=== PATIENT | male | born 1950 | race Caucasian/White ===

== ENCOUNTER 2018-04-18 20:40 | Emergency (ER) | payer SELFPAY ==
[2018-04-18 20:46] VITALS: RESP 16
--- NOTE | 2018-04-18 21:09 | ED PDOC ---
HPI: Psych/Substance Abuse Time Seen by Provider: 04/18/18 20:51 Chief Complaint (Nursing): Alcohol Ingestion Chief Complaint (Provider): etoh History Per: Patient, EMS Additional Complaint(s): BIBA for etoh. Patient was found asleep in the street. He admits to drinking today and states he drinks daily. Patient offers no complaints. Past Medical History Reviewed: Historical Data, Nursing Documentation, Vital Signs Vital Signs: Last Vital Signs Temp 98.0 F 04/18/18 20:44 Pulse 101 H 04/18/18 20:44 Resp 16 04/18/18 20:44 BP 154/91 H 04/18/18 20:44 Pulse Ox 99 04/18/18 20:44 - Medical History PMH: HTN - Family History Family History: States: No Known Family Hx - Living Arrangements Living Arrangements: With Family - Social History Current smoker - smoking cessation education provided: No Alcohol: > 2 Drinks/Day Drugs: Denies - Home Medications Home Medications: Ambulatory Orders Medication Instructions Recorded No Known Home Med [No Known Home 05/03/15 Med] - Allergies Allergies/Adverse Reactions: Allergies Allergy/AdvReac Type Severity Reaction Status Date / Time No Known Allergies Allergy Verified 05/03/15 08:06 Review of Systems ROS Statement: Except As Marked, All Systems Reviewed And Found Negative Psych: Positive for: Other (etoh) Physical Exam - Reviewed Nursing Documentation Reviewed: Yes Vital Signs Reviewed: Yes - Physical Exam Appears: Positive for: Well, Non-toxic, No Acute Distress Skin: Positive for: Normal Color. Negative for: Rash Eye Exam: Positive for: Normal appearance Cardiovascular/Chest: Positive for: Regular Rate, Rhythm Respiratory: Positive for: Normal Breath Sounds. Negative for: Respiratory Distress Extremity: Positive for: Normal ROM Neurologic/Psych: Positive for: Alert, Other (intoxicated, answers some questions appropriately) - ECG O2 Sat by Pulse Oximetry: 99 Pulse Ox Interpretation: Normal Medical Decision Making Medical Decision Makin67 y/o intoxicated male. 9:05 pm - Patient has unsteady gait upon arrival. Will monitor patient in ED pending sobriety. Plan: Glucose POC BAL Fingerstick - 94 BAL: 482 10:45 pm: patient is asleep, arousable, vital signs stable 11:45 pm: Patient is asleep, arousable, vital signs stable, will continue to monitor. Disposition - Clinical Impression Clinical Impression: Alcohol abuse with intoxication - Patient ED Disposition Is Patient to be Admitted: Transfer of Care - Disposition Disposition: Transfer of Care Disposition Time: 23:55 Condition: FAIR Forms: [facility] (Irish) Patient Signed Over To: Kiarra Valdez Handoff Comments: Signed out pending sobriety and final disposition
--- NOTE | 2018-04-19 00:39 | ED PDOC ---
- ECG O2 Sat by Pulse Oximetry: 99 - Progress ED Course And Treament: Patient observed in ED for clinical sobriety. Disposition - Clinical Impression Clinical Impression: Alcohol abuse with intoxication - POA Present On Arrival: None - Disposition Referrals: [facility] [place] [facility] [Outside] Disposition: Routine/Home Disposition Time: 05:52 Condition: FAIR Instructions: Alcohol Abuse and Alcoholism (DC) Forms: [facility] (Nepali) Print Language: QATARI
[2018-04-19 06:37] VITALS: BP 123/75; PULSE 79; TEMP 98.3; O2SAT 98
== END 2018-04-19 06:34 | disposition home or self-care (01) ==
LOC: H.ER 20:40
DX: F10.129 Alcohol abuse with intoxication, unspecified (principal); I10 Essential (primary) hypertension; Y90.8 Blood alcohol level of 240 mg/100 ml or more
CPT/HCPCS: 82948; 99283; G0480

== ENCOUNTER 2018-06-12 14:47 | Emergency (ER) | payer SELFPAY ==
[2018-06-12 14:53] VITALS: TEMP 98.4
[2018-06-12 16:40] LABS: BASO # 0.1 K/uL (0.0-0.2); BASO % 0.9 % (0.0-2.0); EOS # 0.3 K/uL (0.0-0.7); EOS % 5.6 % (0.0-4.0); HEMOGLOBIN 14.2 g/dL (12.0-18.0); LYMPH # 1.6 K/uL (1.0-4.3); MEAN CELL VOLUME 100.7 fl (80.0-94.0); MEAN CORPUSCULAR HEMOGLOBIN 33.5 pg (27.0-31.0); MEAN CORPUSCULAR HGB CONC 33.3 g/dL (33.0-37.0); MEAN PLATELET VOLUME 9.4 fl (7.2-11.7); MONO # 0.6 K/uL (0.0-0.8); MONO % 10.5 % (0.0-10.0); NEUT # 3.2 K/uL (1.8-7.0); NRBC % 0.1 % (0.0-0.0); RBC 4.24 Mil/uL (4.40-5.90); RED CELL DISTRIBUTION WIDTH 13.3 % (11.5-14.5); WHITE BLOOD COUNT 5.9 K/uL (4.8-10.8)
[2018-06-12 17:04] LABS: ALB/GLOB RATIO 1.5 (1.0-2.1); ALT/SGPT 51 U/L (21-72); AST/SGOT 49 U/L (17-59); BLOOD UREA NITROGEN 12 mg/dl (9-20); CALCIUM 9.2 mg/dL (8.4-10.2); GFR AFRICAN-AMERICAN > 60; GFR NON-AFRICAN AMERICAN > 60
--- NOTE | 2018-06-12 22:31 | ED PDOC ---
HPI: Chest Pain Time Seen by Provider: 06/12/18 15:05 Chief Complaint (Nursing): Chest Pain Chief Complaint (Provider): Chest Pain History Per: Patient History/Exam Limitations: no limitations Onset/Duration Of Symptoms: Hrs Current Symptoms Are (Timing): Still Present Additional Complaint(s): 67 y/o male with a PMHx of HTN presents to the ED complaining of chest pain and lightheadedness associated with sore throat, onset prior to arrival. Patient admits to drinking alcohol today. History may be unreliable due to intoxicated state. PMD: No Provider Past Medical History Reviewed: Historical Data, Nursing Documentation, Vital Signs Vital Signs: Last Vital Signs Temp 98.4 F 06/12/18 14:50 Pulse 62 06/13/18 00:16 Resp 20 06/13/18 00:16 BP 112/77 06/13/18 00:16 Pulse Ox 100 06/13/18 00:16 - Medical History PMH: HTN Denies: HIV, Seizures, Sexually Transmitted Disease - Surgical History Surgical History: No Surg Hx - Family History Family History: States: Unknown Family Hx - Social History Current smoker - smoking cessation education provided: No Alcohol: > 2 Drinks/Day Drugs: Denies - Immunization History Hx Tetanus Toxoid Vaccination: No Hx Influenza Vaccination: No Hx Pneumococcal Vaccination: No - Home Medications Home Medications: Ambulatory Orders Medication Instructions Recorded No Known Home Med [No Known Home 05/03/15 Med] - Allergies Allergies/Adverse Reactions: Allergies Allergy/AdvReac Type Severity Reaction Status Date / Time No Known Allergies Allergy Verified 05/03/15 08:06 Review of Systems ROS Statement: Except As Marked, All Systems Reviewed And Found Negative Cardiovascular: Positive for: Chest Pain Respiratory: Positive for: Shortness of Breath Neurological: Positive for: Dizziness Psych: Positive for: Other (EtOH intoxication) Physical Exam - Reviewed Nursing Documentation Reviewed: Yes Vital Signs Reviewed: Yes - Physical Exam Appears: Positive for: No Acute Distress (but intoxicated) Head Exam: Positive for: ATRAUMATIC, NORMOCEPHALIC Skin: Positive for: Warm, Dry Eye Exam: Positive for: EOMI, PERRL, Conjunctival injection ENT: Positive for: Normal ENT Inspection, Other (Dry mucous membranes) Neck: Positive for: Painless ROM, Supple Cardiovascular/Chest: Positive for: Regular Rate, Rhythm. Negative for: Murmur Respiratory: Positive for: Normal Breath Sounds. Negative for: Respiratory Distress Gastrointestinal/Abdominal: Positive for: Soft. Negative for: Tenderness Back: Positive for: Normal Inspection. Negative for: Decreased ROM Extremity: Positive for: Normal ROM. Negative for: Deformity Lymphatic: Negative for: Adenopathy Neurologic/Psych: Positive for: Oriented (x2), Gait (Unsteady), Other (Lethargic , slurred speech). Negative for: Motor/Sensory Deficits - Laboratory Results Result Diagrams: 06/12/18 16:05 06/12/18 16:05 - ECG ECG Rhythm: Positive for: Normal QRS, Normal ST Segment, Sinus Rhythm Rate: 87 O2 Sat by Pulse Oximetry: 95 (RA) Pulse Ox Interpretation: Normal Medical Decision Making Medical Decision Making: Time: 1527 Impression: alcohol intoxication Plan: -- EKG -- CXR Portable -- W[employer] -- Glucose, Blood, POC Time: 160 Plan: -- 1:1 Observation -- Glucose, Blood POC -- CBC with differentials -- Troponin I -- Phosphorus -- Magnesium -- CMP -- Alcohol Serum -- Observe until sobriety. 2200 Pt ambulated multiple times without difficulty. Oriented x 3. No signs of withdrawal. Stable for dc. ___ Scribe Attestation: Documented by Killian Antoine acting as a scribe for Dr. Asuncion Currie. Provider Scribe Attestation: All medical record entries made by the Scribe were at my direction and personally dictated by me. I have reviewed the chart and agree that the record accurately reflects my personal performance of the history, physical exam, medical decision making, and the department course for this patient. I have also personally directed, reviewed, and agree with the discharge instructions and disposition. Disposition - Clinical Impression Clinical Impression: Alcohol abuse with intoxication - Disposition Referrals: Alcohol[facility] Anonymous [Outside] Disposition: Routine/Home Disposition Time: 22:00 Condition: IMPROVED Instructions: Alcohol Abuse and Alcoholism (DC) Print Language: THAI
[2018-06-13 00:16] VITALS: BP 112/77; RESP 20
--- NOTE | 2018-06-13 08:25 | RAD ---
Date of service: 06/12/2018 HISTORY: chest pain sob COMPARISON: No prior. FINDINGS: LUNGS: No active pulmonary disease. PLEURA: No significant pleural effusion identified, no pneumothorax apparent. CARDIOVASCULAR: Normal. OSSEOUS STRUCTURES: No significant abnormalities. VISUALIZED UPPER ABDOMEN: Normal. OTHER FINDINGS: None. IMPRESSION: No active disease.
--- NOTE | 2018-06-13 08:46 | CARD ---
APPROVED REPORT Date of service: 06/12/2018 <Conclusion> Normal sinus rhythm Normal ECG
[2018-06-14 14:14] VITALS: PULSE 87; O2SAT 95
== END 2018-06-13 00:17 | disposition home or self-care (01) ==
LOC: H.ER 14:47
DX: F10.129 Alcohol abuse with intoxication, unspecified (principal); R07.89 Other chest pain; I10 Essential (primary) hypertension
CPT/HCPCS: 71045; 80053; 82948; 83735; 84100; 84484; 85025; 93005; 99285; G0480